=== PATIENT | female | born 2005 | race Hispanic/Latino ===

== ENCOUNTER 2023-07-10 19:01 | Inpatient (IN) | payer MEDICAID ==
[2023-07-10] MEDS ORDERED: LACTATED RINGER'S 1,000 ML IV ONE (20:00)
[2023-07-10] MEDS ORDERED: ondansetron HCL 4 MG/2 ML VIAL IV ONE (20:00)
[2023-07-10] MEDS ORDERED: MORPHINE SULFATE 4 MG/ML VIAL IV PRN (21:00)
[2023-07-10] MEDS ORDERED: CEFTRIAXONE/SODIUM CHLORIDE 1 GM/100 ML PIGGYBACK IV SCH (21:00)
[2023-07-10] MEDS ORDERED: LACTATED RINGER'S 1,000 ML IV SCH (21:00)
[2023-07-10] MEDS ORDERED: ondansetron HCL 4 MG/2 ML VIAL IV PRN (21:00)
[2023-07-10 21:05] LABS: BILIRUBIN, URINE NEGATIVE (negative); BLOOD/HGB, URINE NEGATIVE (Negative); KETONE, URINE SMALL (Negative); LEUK ESTERASE, URINE SMALL (negative); NITRITE, URINE NEGATIVE (negative)
[2023-07-10 21:17] LABS: EPITHELIAL CELLS, URINE SQUAMOUS 1+ /lpf (0-1+); WHITE BLOOD CELLS, URINE 21-40 /HPF (0-5)
[2023-07-10 21:18] LABS: BACTERIA, URINE 1+ /hpf (negative); CASTS, URINE NONE SEEN \\lpf; COLLECTION TYPE, URINE CLEAN CATCH; CRYSTALS, URINE CALCIUM OXALATE 1+ (0-1+); REFLEX CULTURE, URINE Yes (No)
[2023-07-10] MEDS ORDERED: diphenhydrAMINE HCL 50 MG/ML VIAL IV PRN (21:30)
[2023-07-10] MEDS ORDERED: ACETAMINOPHEN 500 MG TAB ONE (21:58)
[2023-07-10] MEDS ORDERED: ACETAMINOPHEN 500 MG TAB PO SCH (22:00)
[2023-07-10 22:22] LABS: BASOPHILS 0.4 % (0-2); EOSINOPHILS 0.2 % (0-6); HEMATOCRIT 34.7 % (35.0-50.0); HEMOGLOBIN 11.5 g/dL (12.0-18.0); LYMPHOCYTES 8.3 % (24-44); MCH 30.2 (27-36); MCHC 33.1 g/dl (30-36); MCV 91.4 fl (81-99); MONOCYTES 2.4 % (0-12); NEUTROPHILS 88.7 % (39-80); PLATELET COUNT 272 K/uL (140-440); RDW 13.2 (10.5-15.0)
[2023-07-10 23:05] LABS: ABO O; RH POSITIVE
[2023-07-10 23:06] LABS: ANTIBODY SCREEN NEGATIVE
[2023-07-10 23:11] VITALS: BP 113/68
[2023-07-11] MEDS ORDERED: ACETAMINOPHEN 500 MG TAB PO SCH (02:00)
--- NOTE | 2023-07-11 09:24 | PR ---
[facility] [address] [facility] [place], [place] [address] Signed AP Progress Notes Datetime Report Generated by STEPHEN: 07/11/2023 09:23 Chief Complaint: Back pain PHYSICAL EXAM: [id number] General: Normal HEENT: Normal Neurologic: Normal Thyroid: Not Done Cardiovascular: Not Done Respiratory: Not Done Breast: Not Done Back: Abnormal Abdomen: Normal Genitourinary Exam: Not Done Extremities: Normal DTRs: Not Done Physical Exam Comments: S: 17 yo @ 27w6d with pyelonephritis. HD#2. Doing well. She reports continued back pain. Denies DANIEL, CP, SOB, F/C, N/V, RUQ pain, changes in vision, vaginal bleeding or discharge, LOF. +FM. Tolerating regular diet, ambulating, voiding on own, pain controlled. O: AFVSS Abdomen: Gravid. Soft, non-tender to palpation. Fundal height appropriate for gestational age. Musc: MCGARRY. No C/C/E. Continued CVA tenderness on left side. Right-sided CVA tenderness improved. Impression: 17 yo @ 27w6d with pyelonephritis. HD#2. Doing well. Plan: Will continue inpatient management with IV antibiotics. Likely discharge home on Tuesday morning. Continue to encourage PO intake of water as she has not been successful with this prior to admission nor during admission. Will discontinue IV fluids after 4th bag of LR. VITAL SIGNS: [id number] Vital Signs: Reviewed VS Notable Details: Maternal tachycardia EXAM: [id number] MEMBRANES: [id number] Membranes: Intact FETUS A: [id number] *Electronically Signed* 07/11/23922 TITO CHAN MD PATIENT NAME: LEONIDES COYLEBOLA PROGRESS NOTE DATE OF : 03 PHYSICIAN: TITO CHAN MD RPT #: [id number] REPORT IS CONFIDENTIAL AND NOT TO BE RELEASED WITHOUT AUTHORIZATION [address] [address] Signed FHR Baseline: 140 Variability: Moderate 6-25bpm Accelerations: 10X10 Deceleration: None FHR Comments: No signs of metabolic acidosis Gestation by US: 27.5 FETUS B: [id number] PROGRESS NOTES: [id number] Signing Physician: Tito Chan MD Copies: ~ *Electronically Signed* 07/11/23922 TITO CHAN MD PATIENT NAME: BOLA MENA PROGRESS NOTE DATE OF : 03 PHYSICIAN: TITO CHAN MD RPT #: [id number] REPORT IS CONFIDENTIAL AND NOT TO BE RELEASED WITHOUT AUTHORIZATION
--- NOTE | 2023-07-12 07:29 | PR ---
[facility] [address] [facility] [place] [address] Signed AP Progress Notes Datetime Report Generated by STEPHEN: 07/12/2023 07:29 Chief Complaint: Back pain PHYSICAL EXAM: [id number] General: Normal HEENT: Normal Neurologic: Normal Thyroid: Not Done Cardiovascular: Not Done Respiratory: Not Done Breast: Not Done Back: Normal Abdomen: Normal Genitourinary Exam: Not Done Extremities: Normal DTRs: Not Done Physical Exam Comments: S: 17 yo @ 28w0d with pyelonephritis. HD#3. Denies DANIEL, CP, SOB, F/C, N/V, RUQ pain, changes in vision, vaginal bleeding or discharge, LOF. +FM. Tolerating regular diet, ambulating, voiding on her own, pain controlled, +BM. O: AFVSS Abd: Soft, non-tender. Fundal height appropriate for gestation. Musc: MCGARRY. CVA tenderness on left has resolved. Impression: 17 yo @ 28w0d with pyelonephritis. HD#3. Doing well. Plan: Patient to receive additional dose of antibiotics tonight. Likely discharge home tomorrow AM. VITAL SIGNS: [id number] Vital Signs: Reviewed VS Notable Details: Maternal tachycardia EXAM: [id number] MEMBRANES: [id number] Membranes: Intact FETUS A: [id number] FHR Baseline: 140 Variability: Moderate 6-25bpm Accelerations: 10X10 Deceleration: None FHR Comments: No signs of metabolic acidosis *Electronically Signed* [id number] TITO CHAN MD PATIENT NAME: BOLA MENA PROGRESS NOTE DATE OF : 03 PHYSICIAN: TITO CHAN MD RPT #: [id number] REPORT IS CONFIDENTIAL AND NOT TO BE RELEASED WITHOUT AUTHORIZATION [address] [place] [address] Signed Gestation by US: 27.5 FETUS B: [id number] PROGRESS NOTES: [id number] Signing Physician: Tito Cahn MD Copies: ~ *Electronically Signed* 07/12/23728 TITO CHAN MD PATIENT NAME: BOLA MENANA PROGRESS NOTE DATE OF : 03 PHYSICIAN: TITO CHAN MD RPT #: [id number] REPORT IS CONFIDENTIAL AND NOT TO BE RELEASED WITHOUT AUTHORIZATION
--- NOTE | 2023-07-13 10:47 | PR ---
[facility] [address] [facility] [place], [place] [address] Signed AP Progress Notes Datetime Report Generated by STEPHEN: 07/13/2023 10:47 Chief Complaint: Back pain PHYSICAL EXAM: [id number] General: Normal HEENT: Normal Neurologic: Normal Thyroid: Not Done Cardiovascular: Not Done Respiratory: Not Done Breast: Not Done Back: Normal Abdomen: Normal Genitourinary Exam: Normal Extremities: Normal DTRs: Not Done Physical Exam Comments: S: 17 yo @ 28w1d who was admitted for pyelonephritis. HD#4. Denies DANIEL, CP, SOB, F/C, N/V, RUQ pain, changes in vision, vaginal bleeding or discharge, LOF. +FM. O: AFVSS Abd: Soft, gravid. Non-tender. Fundus appropriate height for gestational age. Musc: MCGARRY. No C/C/E. Impression: 17 yo @ 28w1d with pyelonephritis. Doing well. Significantly improved with IV antibiotics. Plan: Meeting hospital milestones. Discharge home today. Patient to complete outpatient antibiotic regimen followed by prophylactic regimen. VITAL SIGNS: [id number] Vital Signs: Reviewed VS Notable Details: Maternal tachycardia EXAM: [id number] MEMBRANES: [id number] Membranes: Ruptured FETUS A: [id number] FHR Baseline: 140 Variability: Moderate 6-25bpm Accelerations: 10X10 Deceleration: None FHR Comments: No signs of metabolic acidosis *Electronically Signed* 07/13/23 TITO REGAN MD PATIENT NAME: BOLA MENA PROGRESS NOTE DATE OF : 03 PHYSICIAN: TITO CHAN MD RPT #: [id number] REPORT IS CONFIDENTIAL AND NOT TO BE RELEASED WITHOUT AUTHORIZATION [address] [place] [address] Signed Gestation by US: 27.5 FETUS B: [id number] PROGRESS NOTES: [id number] Signing Physician: Tito Chan MD Copies: ~ *Electronically Signed* 07/13/23 1047 TITO CHAN MD PATIENT NAME: BOLA MENANA PROGRESS NOTE DATE OF : 03 PHYSICIAN: TITO CHAN MD RPT #: [id number] REPORT IS CONFIDENTIAL AND NOT TO BE RELEASED WITHOUT AUTHORIZATION
== END 2023-07-13 11:00 | disposition home or self-care (01) | DRG 833 ==
LOC: FBCO 19:01 → FBC 21:34
PROVIDERS: ADMIT Obstetrics & Gynecology; ATTEND Obstetrics & Gynecology
DX: O23.02 Infections of kidney in pregnancy, second trimester (principal); Z3A.27 27 weeks gestation of pregnancy
CPT/HCPCS: 36415; 81001; 85025; 86850; 86900; 86901; 87088; A9270; J0696; J2270; J2405; J7121